=== PATIENT | female | born 1980 | race Two or more races ===

== ENCOUNTER 2022-01-25 06:24 | Day surgery (SDC) | payer OTHER | END 2022-01-25 11:50 | disposition home or self-care (01) | LOC: EDBD 06:24 → AMB-ENDOS 06:24 | PROVIDERS: ATTEND Colon & Rectal Surgery | DX: D12.2 Benign neoplasm of ascending colon (principal); D12.4 Benign neoplasm of descending colon; K57.30 Diverticulosis of large intestine without perforation or abscess without bleeding; Z20.822 Contact with and (suspected) exposure to COVID-19 ==

== ENCOUNTER 2022-03-07 11:58 | Inpatient (IN) | payer OTHER ==
[~2022-03-07] VITALS: Ht 154.9 cm; Wt 90.7 kg
[2022-03-08] MEDS ORDERED: WELLBUTRIN XL150 M1 PO (08:07)
[2022-03-08] MEDS ORDERED: COZAAR25 MG PO (08:07)
[2022-03-08] MEDS ORDERED: LASIX20 MG PO (08:07)
== END 2022-03-13 10:26 | disposition home or self-care (01) | DRG 331 ==
LOC: SURH 03-10 07:00 → O/R 03-10 07:23 → SURH 03-10 07:23
PROVIDERS: ADMIT Colon & Rectal Surgery; ATTEND Colon & Rectal Surgery
PROC: 0DBP4ZZ Excision of Rectum, Percutaneous Endoscopic Approach (ICD-10-PCS; 2022-03-10)
PROC: 0DJD8ZZ Inspection of Lower Intestinal Tract, Via Natural or Artificial Opening Endoscopic (ICD-10-PCS; 2022-03-10)
PROC: 4A1BXSH Monitoring of Gastrointestinal Vascular Perfusion using Indocyanine Green Dye, External Approach (ICD-10-PCS; 2022-03-10)
PROC: 0DTN4ZZ Resection of Sigmoid Colon, Percutaneous Endoscopic Approach (ICD-10-PCS; principal; 2022-03-10 07:00)
DX: K57.30 Diverticulosis of large intestine without perforation or abscess without bleeding (principal); R10.32 Left lower quadrant pain; E83.42 Hypomagnesemia; E83.39 Other disorders of phosphorus metabolism; I10 Essential (primary) hypertension

== ENCOUNTER 2022-03-16 00:26 | Emergency (ER) | payer OTHER ==
[~2022-03-16] VITALS: Ht 154.9 cm; Wt 90.7 kg
[~2022-03-16 00:26] MED LIST: COZAAR25 MG PO; LASIX20 MG PO; WELLBUTRIN XL150 M1 PO
== END 2022-03-16 14:09 | disposition home or self-care (01) ==
LOC: ER 00:26
DX: K57.32 Diverticulitis of large intestine without perforation or abscess without bleeding (principal); Z88.6 Allergy status to analgesic agent; Z88.0 Allergy status to penicillin; Z91.013 Allergy to seafood; I10 Essential (primary) hypertension; Z87.19 Personal history of other diseases of the digestive system

== ENCOUNTER 2023-06-12 10:17 | Outpatient (CLI) | payer OTHER | END 2023-06-12 10:23 | disposition home or self-care (01) | LOC: MAMO-SONO 10:17 | PROVIDERS: ATTEND Student in an Organized Health Care Education/Training Program | DX: Z12.31 Encounter for screening mammogram for malignant neoplasm of breast (principal); N60.11 Diffuse cystic mastopathy of right breast; N60.12 Diffuse cystic mastopathy of left breast ==

== ENCOUNTER 2024-01-22 15:05 | Outpatient (CLI) | payer OTHER | END 2024-01-22 15:10 | disposition home or self-care (01) | LOC: SONOGRAMA 15:05 | PROVIDERS: ATTEND Student in an Organized Health Care Education/Training Program | DX: N64.4 Mastodynia (principal); N63 Unspecified lump in breast ==

== ENCOUNTER 2024-02-04 18:47 | Emergency (ER) | payer OTHER ==
[~2024-02-04] VITALS: Ht 160 cm; Wt 81.6 kg
[2024-02-04] MEDS ORDERED: COZAAR50 MG PO (19:14)
[2024-02-04] MEDS ORDERED: LASIX20 MG PO (19:14)
[2024-02-04] MEDS ORDERED: DEXAMETHASONE SODIUM PHOSPHATE 4 MG/ML VIAL IM ONE (23:45)
[2024-02-04] MEDS ORDERED: KETOROLAC TROMETHAMINE 30 MG VIAL IM ONE (23:45)
[2024-02-04] MEDS ORDERED: ORPHENADRINE CITRATE 30 MG/ML AMPUL IM ONE (23:45)
== END 2024-02-05 00:26 | disposition home or self-care (01) ==
LOC: ER 18:47
DX: M62.838 Other muscle spasm (principal); Z88.0 Allergy status to penicillin; Z91.013 Allergy to seafood; Z88.6 Allergy status to analgesic agent

== ENCOUNTER 2024-05-13 12:35 | Emergency (ER) | payer OTHER ==
[~2024-05-13] VITALS: Ht 154.9 cm; Wt 98.0 kg
[~2024-05-13 12:35] MED LIST changes: +COZAAR50 MG PO
[2024-05-13] MEDS ORDERED: CHLORTHALIDONE25 MG PO (13:09)
[2024-05-13] MEDS ORDERED: AVAPRO300 MG PO (13:09)
[2024-05-13] MEDS ORDERED: NIFEDIPINE20 MG (13:09)
[2024-05-13 14:41] LABS: URINE APPEARANCE Clear; URINE BILIRRUBIN Negative (NEGATIVE); URINE BLOOD Negative; URINE COLOR Yellow; URINE GLUCOSE Negative (NEGATIVE); URINE LEUKOCYTE Negative; URINE NITRATE Negative; URINE PROTEIN Negative (NEGATIVE); URINE UROBILINOGEN 0.2 E.U./dl
[2024-05-13 14:44] LABS: URINE EPITHELIAL CELLS 17.1 uL (0.0-38.8); URINE RBC 3.3 uL (0.0-20.8); URINE WBC 6.4 uL (0.0-23.2)
[2024-05-13 14:48] LABS: HEMATOCRIT 41.6 % (36.0-45.00); HEMOGLOBIN 13.6 g/dL (12.0-15.00); MEAN CELL VOLUME 70.5 fL (80.00-100.00); MEAN CORPUSCULAR HEMOGLOBIN 23.1 pg (27.00-32.0); MEAN CORPUSCULAR HGB CONC 32.7 g/dl (32.0-36.0); PLATELET COUNT 334 K/uL (150-450); RED CELL DISTRIBUTION WIDTH 13.9 % (11.5-14.5)
== END 2024-05-13 19:44 | disposition home or self-care (01) ==
LOC: ER 12:36
PROVIDERS: General Practice
DX: R53.1 Weakness (principal); I10 Essential (primary) hypertension; Z88.0 Allergy status to penicillin; Z88.8 Allergy status to other drugs, medicaments and biological substances; Z20.822 Contact with and (suspected) exposure to COVID-19

== ENCOUNTER 2024-06-09 07:06 | Outpatient (CLI) | payer OTHER ==
[~2024-06-09 07:06] MED LIST changes: +AVAPRO300 MG PO; +CHLORTHALIDONE25 MG PO; +NIFEDIPINE20 MG
== END 2024-06-09 07:07 | disposition home or self-care (01) ==
LOC: NUCLEAR 07:06
DX: I11.9 Hypertensive heart disease without heart failure (principal); R07.9 Chest pain, unspecified
CPT/HCPCS: 78452; 93017; A9500

== ENCOUNTER 2024-12-10 23:57 | Emergency (ER) | payer OTHER ==
[~2024-12-10] VITALS: Ht 154.9 cm; Wt 98.0 kg
[2024-12-11] MEDS ORDERED: METHYLPREDNISOLONE SOD SUCC 125 MG VIAL IM STA (03:24)
[2024-12-11] MEDS ORDERED: DIPHENHYDRAMINE HCL 12.5 MG/5 ML BLIST.PACK PO STA (03:25)
[2024-12-11] MEDS ORDERED: GUAIFENESIN 200 MG/10 ML BLIST.PACK PO STA (03:25)
[2024-12-11] MEDS ORDERED: METHYLPREDNISOLONE SOD SUCC 125 MG VIAL ONE (03:26)
[2024-12-11] MEDS ORDERED: GUAIFENESIN 200 MG/10 ML BLIST.PACK PO ONE (03:26)
[2024-12-11] MEDS ORDERED: DIPHENHYDRAMINE HCL 12.5 MG/5 ML BLIST.PACK PO ONE (03:26)
[2024-12-11] MEDS ORDERED: ALBUTEROL SULFATE 3 ML/2.5 MG AMPUL.NEB IH SCH (03:30)
[2024-12-11] MEDS ORDERED: ALBUTEROL SULFATE 3 ML/2.5 MG AMPUL.NEB IH ONE (03:36)
[2024-12-11] MEDS ORDERED: ALBUTEROL2.5 MG/3 M IH (04:39)
[2024-12-11] MEDS ORDERED: BUDESONIDE0.5 MG/2 M IH ×2 (04:40→04:41)
[2024-12-11 04:51] VITALS: BP 128/82; O2SAT 98
== END 2024-12-11 04:53 ==
LOC: ER 23:59
DX: U07.1 COVID-19 (principal); Z88.0 Allergy status to penicillin; Z91.013 Allergy to seafood; Z88.8 Allergy status to other drugs, medicaments and biological substances; I10 Essential (primary) hypertension

== ENCOUNTER → 2025-03-19 06:18 | Outpatient (CLI) | payer OTHER ==
[~2025-03-19 06:18] MED LIST changes: +ALBUTEROL2.5 MG/3 M IH; +BUDESONIDE0.5 MG/2 M IH
[2025-03-19 07:03] LABS: HEMATOCRIT 39.6 % (36.0-45.00); HEMOGLOBIN 12.5 g/dL (12.0-15.00); MEAN CELL VOLUME 71.7 fL (80.00-100.00); MEAN CORPUSCULAR HEMOGLOBIN 22.6 pg (27.00-32.0); MEAN CORPUSCULAR HGB CONC 31.6 g/dl (32.0-36.0); PLATELET COUNT 323 K/uL (150-450); RED BLOOD COUNT 5.52 M/uL (4.00-6.00)
[2025-03-19 07:05] LABS: PH,URINE 7.5 (5.0-8.0); URINE APPEARANCE Cloudy; URINE BILIRRUBIN Negative (NEGATIVE); URINE BLOOD Negative; URINE COLOR Yellow; URINE GLUCOSE Negative (NEGATIVE); URINE KETONE Negative (NEGATIVE); URINE LEUKOCYTE Small; URINE NITRATE Negative; URINE PROTEIN Negative (NEGATIVE)
[2025-03-19 07:06] LABS: URINE BACTERIA 5660.6 uL (0.0-1933); URINE EPITHELIAL CELLS 108.4 uL (0.0-38.8); URINE WBC 30.5 uL (0.0-23.2)
[2025-03-19 07:12] LABS: URINE CAST 0.29 uL (0.0-1.40)
[2025-03-19 12:14] LABS: ALBUMIN 3.2 gm/dL (3.4-5.0); BILIRUBIN TOTAL 0.73 mg/dL (0.3-1.2); CALCIUM 9.4 mg/dL (8.5-10.1); CREATININE SERUM 0.49 mg/dL (0.55-1.02); GFR 136.57; GLOBULINA 3.4 G/DL (2.4-3.5); POTASSIUM 3.76 mEq/L (3.5-5.1); TOTAL PROTEIN 6.6 gm/dL (6.4-8.2)
[2025-03-19 13:16] LABS: TSH 1.22 uIU/mL (0.358-3.74)
== END | disposition home or self-care (01) ==
LOC: LAB 06:18
DX: E03.9 Hypothyroidism, unspecified (principal); E11.9 Type 2 diabetes mellitus without complications

== ENCOUNTER 2025-03-19 08:50 | Outpatient (CLI) | payer OTHER | END 2025-03-20 08:53 | disposition home or self-care (01) | LOC: MAMO-SONO 08:50 | PROVIDERS: ATTEND Family Medicine Geriatric Medicine | DX: N64.4 Mastodynia (principal); Z12.31 Encounter for screening mammogram for malignant neoplasm of breast ==